=== PATIENT | male | born 1995 ===

== ENCOUNTER 2025-07-14 10:09 | Emergency (ER) | payer OTHER ==
[~2025-07-14] VITALS: Ht 175.3 cm; Wt 90.7 kg
[2025-07-14 10:24] VITALS: BP 141/97
== END 2025-07-14 11:36 | disposition home or self-care (01) ==
LOC: ER 10:09
DX: S56.412A Strain of extensor muscle, fascia and tendon of left index finger at forearm level, initial encounter (principal); W18.30XA Fall on same level, unspecified, initial encounter
CPT/HCPCS: 73140; 99283-25